=== PATIENT | male | born 1960 | race Hispanic/Latino ===

== ENCOUNTER 2018-06-14 17:28 | Observation (INO) | payer BC ==
[~2018-06-14] VITALS: Ht 180.3 cm; Wt 90.7 kg
[2018-06-14] MEDS ORDERED: SODIUM CHLORIDE 0.9% 1000ML 1,000 ML IV SCH (17:45)
[2018-06-14] MEDS ORDERED: SODIUM CHLORIDE 0.9% 1000ML 1,000 ML IV ONE (17:45)
[2018-06-14] MEDS ORDERED: SODIUM CHLORIDE 0.9% 1000ML 1,000 ML IV STA (17:54)
--- NOTE | 2018-06-14 18:33 | Diagnostic Imaging Report ---
ADDENDUM #1 Agree with the preliminary report Signed by: DR Felipe Rivera M.D. on 06/14/2018 6:47 PM ORIGINAL REPORT Exam: Noncontrast Head CT History: 57-year-old male syncope with fall and laceration on 4 head Comparison studies: None Technique: Axial images were obtained from the skull base to the vertex. Coronal and sagittal reconstructions obtained from the axial data. Dose modulation, iterative reconstruction, and/or weight based adjustment of the mA/kV was utilized to reduce the radiation dose to as low as reasonably achievable. Findings: Scalp/skull: Small contusion in the mid frontal scalp. No fractures, blastic or lytic lesions. Extra-axial spaces: No masses. No fluid collections. Brain sulci: Appropriate for age. Ventricles: Normal in size and configuration. No hydrocephalus. Parenchyma: No abnormal densities. No masses, hemorrhage, acute or chronic cortical vascular insults. Sellar/suprasellar region: No abnormalities Craniocervical junction: Patent foramen magnum. No Chiari one malformation. IMPRESSION: Small frontal scalp contusion with no intracranial abnormality. Report dictated by neuroradiology fellow. Final read to follow. Signed by: Hammad Huerta MD on 06/14/2018 6:30 PM
--- NOTE | 2018-06-14 18:35 | Diagnostic Imaging Report ---
EXAMINATION: CXR 2 VIEW - HOPD INDICATION: COMPARISON: None FINDINGS: PA and lateral views TUBES and LINES: None. LUNGS: Lungs are well inflated. Subsegmental atelectasis in the left lower lobe. Possible calcified granuloma in the right lower lobe. There is no evidence of pneumonia or pulmonary edema. PLEURA: No pleural effusion or pneumothorax. HEART AND MEDIASTINUM: The cardiomediastinal silhouette is unremarkable. BONES AND SOFT TISSUES: No acute osseous lesion. Soft tissues are unremarkable. UPPER ABDOMEN: No free air under the diaphragm. IMPRESSION: No acute thoracic abnormality. Signed by: Dr. Jemma Giraldo M.D. on 06/14/2018 6:32 PM
--- OUTSIDE RECORDS SUMMARY | 2018-06-14 19:03 | XMS REPORT ---
[facility] Address Unknown Phone Unavailable Care Team Providers Care Subcontracts Manager Name Role Phone Sotero TARIQ Unavailable Unavailable Problems This patient has no known problems. Allergies, Adverse Reactions, Alerts This patient has no known allergies or adverse reactions. Medications This patient has no known medications. Results Test Description Test Time Test Comments Text Results Atomic Results Result Comments CXR 2 VIEW - HOPD 2018-06-14 18:31:00 [place] [address] Patient Name: KIM TUCKER MR #: [id number] : 1960 Age/Sex: 57/M Req #: [id number] Adm Physician: Ordered by: BELA TARIQ MD Report #: [id number] Location: [facility] Room/Bed: Procedure: [id number] HOPD/CXR 2 VIEW - HOPD Exam Date: 06/14/18 Exam Time: 1820 REPORT STATUS: Signed EXAMINATION: CXR 2 VIEW - HOPD INDICATION: COMPARISON: None FINDINGS: PA and lateral views TUBES and LINES: None. LUNGS: Lungs are well inflated. Subsegmental atelectasis in the left lower lobe. Possible calcified granuloma in the right lower lobe. There is no evidence of pneumonia or pulmonary edema. PLEURA: No pleural effusion or pneumothorax. HEART AND MEDIASTINUM: The cardiomediastinal silhouette is unremarkable. BONES AND SOFT TISSUES: No acute osseous lesion. Soft tissues are unremarkable. UPPER ABDOMEN: No free air under the diaphragm. IMPRESSION: No acute thoracic abnormality. Signed by: Dr. Alejandra Ambrose M.D. on 06/14/2018 6:32 PM Dictated By: ALEJANDRA AMBROSE MD 31 Transcribed By: NIRALI on 06/14/181831 COPY TO: BELA TARIQ MD CT BRAIN WO-HOPD 2018-06-14 18:28:00 [place] [address] Patient Name: KIM TUCKER MR #: [id number] : 1960 Age/Sex: 57/M Req #: [id number] Adm Physician: Ordered by: BELA TARIQ MD Report #: [id number] Location: [facility] Room/Bed: Procedure: [id number] HOPD/CT BRAIN WO-HOPD Exam Date: 06/14/18 Exam Time: 1810 REPORT STATUS: Signed ADDENDUM #1 Agree with the preliminary report Signed by: DR Felipe Rivera M.D. on 06/14/2018 6:47 PM ORIGINAL REPORT Exam: Noncontrast Head CT History: 57-year-old male syncope with fall and laceration on 4 head Comparison studies: None Technique: Axial images were obtained from the skull base to the vertex. Coronal and sagittal reconstructions obtained from the axial data. Dose modulation, iterative reconstruction, and/or weight based adjustment of the mA/kV was utilized to reduce the radiation dose to as low as reasonably achievable. Findings: Scalp/skull: Small contusion in the mid frontal scalp. No fractures, blastic or lytic lesions. Extra-axial spaces: No masses. No fluid collections. Brain sulci: Appropriate for age. Ventricles: Normal in size and configuration. No hydrocephalus. Parenchyma: No abnormal densities. No masses, hemorrhage, acute or chronic cortical vascular insults. Sellar/suprasellar region: No abnormalities Craniocervical junction: Patent foramen magnum. No Chiari one malformation. IMPRESSION: Small frontal scalp contusion with no intracranial abnormality. Report dictated by neuroradiology fellow. Final read to follow. Signed by: Hammad Huerta MD on 06/14/2018 6:30 PM Dictated By: CHARLES HUERTA MD [id number] Transcribed By: NIRALI on 06/14/18 1830 COPY TO: BELA TARIQ MD
--- NOTE | 2018-06-14 19:14 | NUR ---
[facility] CALLED FOR TRANSPORT
[2018-06-14 20:15] VITALS: BP 129/71
--- NOTE | 2018-06-14 20:15 | NUR ---
patient is a new admit that arrived via wheelchair. patient is awake and talking. patient has been assisted into the bed. bed is in the lowest position and call rm is within reach. will continue to monitor patient.
[2018-06-14] MEDS ORDERED: GLIMEPIRIDE2 MG PO (22:24)
[2018-06-14] MEDS ORDERED: METFORMIN HCL500 MG PO (22:24)
[2018-06-14] MEDS ORDERED: PIOGLITAZONE HC45 MG PO (22:24)
[2018-06-14] MEDS ORDERED: LISINOPRIL40 MG PO (22:24)
[2018-06-14] MEDS ORDERED: NAPROXEN250 MG PO (22:24)
[2018-06-14] MEDS ORDERED: GABAPENTIN300 MG PO (22:24)
[2018-06-15] VITALS (8 sets, daily range): BP systolic 108–130; BP diastolic 59–77
[2018-06-15 02:37] LABS: CREATINE KINASE 86 IU/L (30-200)
[2018-06-15 05:38] LABS: BASOPHILS % 0.4 % (0.0-1.0); EOSINOPHILS # (AUTO) 0.2 (0.0-0.4); HEMATOCRIT 43.9 % (38.2-49.6); HEMOGLOBIN 14.9 g/dL (14.0-18.0); LYMPHOCYTES # (AUTO) 1.8 (1.0-3.2); MEAN CORPUSCULAR HEMOGLOBIN 28.8 pg (28-32); MEAN CORPUSCULAR HGB CONC 33.9 g/dL (31-35); MEAN CORPUSCULAR VOLUME 84.7 fL (81-99); MONOCYTES # (AUTO) 0.9 (0.2-0.8); MONOCYTES % 15.5 % (4.4-11.3); NEUTROPHILS # (AUTO) 2.8 (2.1-6.9); NEUTROPHILS % 48.9 % (38.7-80.0); PLATELET COUNT 175 x10e3/uL (140-360); RED BLOOD COUNT 5.18 x10e6/uL (4.3-5.7); RED CELL DISTRIBUTION WIDTH 16.1 % (11.7-14.4)
[2018-06-15 06:01] LABS: ALANINE AMINOTRANSFERASE 31 IU/L (0-55); ALBUMIN 3.3 g/dL (3.5-5.0); ALBUMIN/GLOBULIN RATIO 1.1 (0.8-2.0); ALKALINE PHOSPHATASE 46 IU/L (40-150); ANION GAP 14.5 mmol/L (8-16); BLOOD UREA NITROGEN 28 mg/dL (7-26); BUN/CREATININE RATIO 24 (6-25); CALCIUM 9.5 mg/dL (8.4-10.2); CARBON DIOXIDE 25 mmol/L (22-29); CHLORIDE 104 mmol/L (98-107); CREATININE, SERUM 1.18 mg/dL (0.72-1.25); EST GLOMERULAR FILTRATION RATE > 60 ML/MIN (60-); GLUCOSE 176 mg/dL (74-118); POTASSIUM 4.5 mmol/L (3.5-5.1); SODIUM 139 mmol/L (136-145)
--- NOTE | 2018-06-15 06:48 | NUR ---
report given to day nurse. patient is resting in bed. bed is in lowest position and call rm is within reach.
[2018-06-15] MEDS: INSULIN LISPRO 100 UNIT/1 ML 3ML VIAL SQ SCH ×4 (07:30→21:51)
[2018-06-15] MEDS: ASPIRIN 81 MG CHEW TAB PO SCH (08:44)
--- NOTE | 2018-06-15 11:23 | History and Physical ---
HISTORY OF PRESENT ILLNESS: Mr. Ryland Price is a 57-year-old gentleman, who was in his usual state of health until the patient started to get symptoms of lightheadedness on movement especially moving up and this has been going on for the last couple of weeks. The patient also had some amount of chest pain that was associated with this. However, yesterday, the patient was working on a porch on a storage shed and the patient suddenly stood up and had symptoms of lightheadedness, went to the floor, syncope was noted. The patient is aware of surroundings on fall. No loss of consciousness. The patient also sustained a laceration which was repaired in the ER. The patient prior to this episode also had symptoms of dizziness ongoing. PAST SURGICAL HISTORY: Noncontributory. No surgeries in the past. PAST MEDICAL HISTORY: History of diabetes mellitus, history of neuropathy, history of osteoarthritis, and history of bunions. MEDICATIONS: He takes gabapentin 300 mg twice a day, glimepiride 8 mg daily, lisinopril 40 mg daily, metformin 1000 mg daily, naproxen 250 mg daily, pioglitazone 45 mg daily. SOCIAL HISTORY: Positive for ETOH, but very occasional. No smoking history either. No IV drug abuse. ALLERGIES: NO KNOWN DRUG ALLERGIES NOTED. FAMILY HISTORY: Positive for diabetes and hypertension. REVIEW OF SYSTEMS: Positive for chest pain on and off. No shortness of breath. No nausea, vomiting, or diarrhea. No constipation. No rectal bleeding. No hematochezia. No hematemesis either. No diplopia. No blurry vision either. PHYSICAL EXAMINATION: VITAL SIGNS: Here are temperature of 97.6, pulse of 64, respirations of 18, blood pressure is , pulse oximetry of 98% on room air. HEENT: Normocephalic. The patient has a traumatic lesion on the forehead, which has been bandaged. Pupils are equal to reaction and accommodation. CVS: S1, S2. Regular rate and rhythm. ABDOMEN: Nontender, nondistended. LUNGS: Clear to auscultation bilaterally. EXTREMITIES: No clubbing, no cyanosis, no edema. NEUROLOGIC: Nonfocal exam. The patient's motor and sensory examination is normal. Cranial nerve examination is normal too. LABORATORY DATA: The patient's white count was 5.69, hemoglobin of 14.9 and hematocrit of 43.9. Chemistries; sodium 139, potassium 4.5, chloride of 105, BUN of 28 and creatinine of 1.18 with EGFR of above 60. Last set of cardiac enzymes have been normal. The patient's ALT, AST, and liver enzymes have been normal. The patient's CT scan done in the D was negative for CVA and chest x-ray was also within normal limits. ASSESSMENT: 1. Syncopal episode. 2. History of hypertension. 3. History of diabetes mellitus. 4. History of palpitation. 5. History of chest pain. PLAN: 1. Plan is to restart his medications. We will hold back on his metformin and his pioglitazone at this time. We will continue all the rest of the medications. 2. A Cardiology consult will be done. 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 3. Echocardiogram will be ordered. 4. Lipid panel and hemoglobin A1c to evaluate his lipid function and also his diabetes control will be assessed. Further recommendation per clinical course. Telemetry monitoring is on board and orthostatic blood pressures will also be checked. MD OLIVE SweeneyJ/MODL /[id number]
--- NOTE | 2018-06-15 18:40 | Consultation ---
DATE OF CONSULTATION: Cardiology Consultation REASON FOR CONSULTATION: Syncope. HISTORY OF PRESENT ILLNESS: This is a 57-year-old man with history of hypertension and diabetes mellitus, who presented with a syncopal episode. The patient states that he was moving things out of storage and was very overheated and hot and then upon standing, lost consciousness, hit his forehead on the floor. He states that his heart was racing as well. He denies any chest pain or shortness of breath prior to this event. This is his first syncopal episode. He describes no pre-event or postictal confusion. REVIEW OF SYSTEMS: A 12-point review of systems conducted is negative otherwise as stated above HPI. PAST MEDICAL HISTORY: Hypertension, neuropathy, and diabetes mellitus. FAMILY HISTORY: No premature coronary artery disease or sudden cardiac . SOCIAL HISTORY: No illicit drug, alcohol, or tobacco use. ALLERGIES: NO KNOWN DRUG ALLERGIES. MEDICATIONS: See medication reconciliation form. PHYSICAL EXAMINATION: VITAL SIGNS: Temperature is 98.4, heart rate 68, respirations are 21, blood pressure is 130/77, and oxygen saturation 99% on 3 L nasal cannula. GENERAL: Well appearing, well built, in no apparent distress. Alert and oriented x3. HEAD: Normocephalic, atraumatic. EYES: Extraocular muscles are intact. Conjunctiva clear. NECK: No JVD. No bruits. CARDIOVASCULAR: Regular rate and rhythm. No murmurs. LUNGS: Clear to auscultation. ABDOMEN: Soft, nontender, and nondistended. EXTREMITIES: No clubbing, cyanosis, or edema. VASCULAR: 2+ pulses. SKIN: Warm, dry, intact. NEUROLOGIC: No focal deficits noted. LABORATORY DATA: Reviewed. Negative troponins. Creatinine 1.1, potassium 4.5, and hemoglobin 14.9. A 12-lead electrocardiogram shows normal sinus rhythm. Echocardiogram showed preserved left ventricular systolic function with normal valves. Telemetry monitoring revealed no arrhythmias. IMPRESSION: 1. Syncope related to orthostatic hypotension. 2. Hypertension. 3. Diabetes mellitus. RECOMMENDATIONS: This patient has a normal electrocardiogram, normal labs, normal echocardiogram, and normal telemetry monitoring, but I will check orthostatic vital signs. The patient maybe discharged from a cardiovascular standpoint with outpatient followup. I spent over 30 minutes discussing with the patient and his family regarding his medical care. I have advised him to get a blood pressure monitoring device and check a home BP log. DO MICHAEL Burden /[id number]
--- NOTE | 2018-06-15 19:45 | NUR ---
RECEIVED REPORT FROM DAY NURSE.PATIENT IS RESTING COMFORTABLY IN BED. BED IS IN LOWEST POSITION AND CALL ARCHULETA IS WITHIN REACH. WILL CONTINUE TO MONITOR PATIENT.
[2018-06-15] MEDS ORDERED: ATORVASTATIN 10 MG TAB PO SCH (21:00)
[2018-06-16 01:00] VITALS: BP 94/52
[2018-06-16 04:00] VITALS: BP 116/70
[2018-06-16 05:17] VITALS: BP 116/73
[2018-06-16 05:18] VITALS: BP 119/76
[2018-06-16 05:39] LABS: BASOPHILS % 0.5 % (0.0-1.0); EOSINOPHILS # (AUTO) 0.2 (0.0-0.4); EOSINOPHILS % 3.5 % (0.0-6.0); HEMATOCRIT 46.6 % (38.2-49.6); HEMOGLOBIN 15.1 g/dL (14.0-18.0); LYMPHOCYTES # (AUTO) 1.9 (1.0-3.2); LYMPHOCYTES % 34.2 % (18.0-39.1); MEAN CORPUSCULAR HGB CONC 32.4 g/dL (31-35); MEAN CORPUSCULAR VOLUME 86.5 fL (81-99); MONOCYTES # (AUTO) 0.6 (0.2-0.8); MONOCYTES % 10.2 % (4.4-11.3); NEUTROPHILS # (AUTO) 2.8 (2.1-6.9); NEUTROPHILS % 51.2 % (38.7-80.0); PLATELET COUNT 180 x10e3/uL (140-360); RED BLOOD COUNT 5.39 x10e6/uL (4.3-5.7)
[2018-06-16 05:52] LABS: ANION GAP 12.9 mmol/L (8-16); BLOOD UREA NITROGEN 19 mg/dL (7-26); BUN/CREATININE RATIO 19 (6-25); CALCIUM 9.4 mg/dL (8.4-10.2); CARBON DIOXIDE 29 mmol/L (22-29); CHLORIDE 103 mmol/L (98-107); CREATININE, SERUM 0.99 mg/dL (0.72-1.25); EST GLOMERULAR FILTRATION RATE > 60 ML/MIN (60-); GLUCOSE 138 mg/dL (74-118); POTASSIUM 4.9 mmol/L (3.5-5.1); SODIUM 140 mmol/L (136-145)
--- NOTE | 2018-06-16 06:07 | Discharge Summary ---
DISCHARGE DIAGNOSES: 1. Syncope. 2. Dehydration. 3. Diabetes. 4. Hypertension. 5. Hyperlipidemia. HISTORY OF PRESENT ILLNESS: The patient is a gentleman, who was working in the shed, has been sweating all morning. As he was sitting down and standing up, he had a syncopal episode, where he did hit the top of his head on the ground. In the emergency room, CT scan of the head was unremarkable and showed scalp abrasion and contusion. prolonged sitting and standing gets somewhat lightheaded, but never to the part of passing out. So, he appears to have some evidence of orthostasis. The patient was hydrating well and at the time of discharge, the patient was having no further orthostatic symptoms. He was discharged to home. He will follow up with me in couple of weeks, but I did go ahead and instruct the patient to make his lisinopril dose from 40 mg down to 20 mg and take half pills since he was having some orthostatic symptoms . Please see hospital chart for full details. MD ROSARIO Adamson/MARLA /[id number]
[2018-06-16 06:15] LABS: FREE THYROXINE INDEX 2.1406 (1.4-3.8); THYROID STIMULATING HORMONE 1.616 uIU/mL (0.350-4.940)
--- NOTE | 2018-06-16 06:35 | NUR ---
report given to day nurse. patient is resting comfortably in bed. bed is in lowest position and call light is within reach.
[2018-06-16] MEDS: INSULIN LISPRO 100 UNIT/1 ML 3ML VIAL SQ SCH (07:30)
[2018-06-16 08:41] VITALS: BP 121/69
[2018-06-16] MEDS ORDERED: LISINOPRIL 20 MG TAB PO SCH (09:00)
[2018-06-16] MEDS ORDERED: METFORMIN HCL 500 MG TAB PO SCH (09:00)
[2018-06-16 09:30] VITALS: BP 121/69
[2018-06-16] MEDS: ASPIRIN 81 MG CHEW TAB PO SCH (09:30)
[2018-06-16] MEDS ORDERED: LISINOPRIL20 MG PO (09:39)
--- NOTE | 2018-06-16 11:40 | NUR ---
patient alert and oriented. discharge instructions given and patient verbalized understanding. IV discontinued, catheter in tact and small dressing applied. patient refused wheelchair assistance and will be escorted off unit to personal auto for to drive home.
== END 2018-06-16 11:40 | disposition home or self-care (01) ==
LOC: FSED 17:28 → ERHOLD 18:34 → IMCU 20:13
PROVIDERS: ADMIT Internal Medicine; ATTEND Internal Medicine
DX: E86.0 Dehydration (principal); I10 Essential (primary) hypertension; E78.5 Hyperlipidemia, unspecified; E11.9 Type 2 diabetes mellitus without complications
CPT/HCPCS: 36415 ×2; 70450; 71046; 80048; 80053 ×2; 81003; 82550; 82553 ×2; 82948; 83036; 84436; 84443; 84479; 84484 ×2; 85025 ×3; 93005; 93306; 99284; G0378 ×3; J7030

== ENCOUNTER 2020-10-19 12:03 | Emergency (ER) | payer BC ==
[~2020-10-19] VITALS: Ht 180.3 cm; Wt 90.7 kg
[~2020-10-19 12:03] MED LIST: GABAPENTIN300 MG PO; GLIMEPIRIDE2 MG PO; LISINOPRIL20 MG PO; LISINOPRIL40 MG PO; METFORMIN HCL500 MG PO; NAPROXEN250 MG PO; PIOGLITAZONE HC45 MG PO
[2020-10-19] MEDS ORDERED: CASIRIVIMAB/IMDEVIMAB 10 ML in SODIUM CHLORIDE 0.9% 100 ML IV ONE (12:30)
== END 2020-10-19 13:56 | disposition home or self-care (01) ==
LOC: ER 12:30
DX: R50.9 Fever, unspecified (principal); R05 Cough; U07.1 COVID-19; I10 Essential (primary) hypertension; E11.9 Type 2 diabetes mellitus without complications
CPT/HCPCS: 99283; J7050